=== PATIENT | male | born 1950 | race African-American/Black ===

== ENCOUNTER 2022-03-19 08:51 | Emergency (ER) | payer MEDICARE, MEDICAID ==
[~2022-03-19] VITALS: Ht 180.3 cm; Wt 78.0 kg
[2022-03-19] MEDS ORDERED: ACETAMINOPHEN 325MG TABLET PO STA (09:12)
[2022-03-19 09:38] LABS: CHLORIDE 102 mEq/L (98-107)
[2022-03-19 10:00] LABS: BASOPHILS % 0.2 % (0.0-2.0); EOSINOPHILS % 0.6 % (0.0-5.0); HEMATOCRIT. 42.5 % (42.0-52.0); HEMOGLOBIN. 14.2 g/dL (14.0-18.0); LYMPHOCYTES % 22.5 % (20.0-50.0); MEAN CORPUSCULAR HEMOGLOBIN 31.3 pg (28.0-32.0); MEAN CORPUSCULAR VOLUME 93.6 fL (80.0-94.0); MEAN PLATELET VOLUME 6.2 fl (7.4-10.4); MONOCYTES % 7.5 % (2.0-8.0); NEUTROPHILS % 69.2 % (40.0-76.0); PLATELET 335 x1000/uL (130-400); RED BLOOD CELL COUNT 4.54 mill/uL (4.7-6.1); RED CELL DISTRIBUTION WIDTH 15.1 % (11.6-14.6)
[2022-03-19] MEDS ORDERED: ACETAMINOPHEN 325MG TABLET PO NR (10:41)
[2022-03-19 11:38] LABS: CLARITY URINE TURBID (CLEAR); COLOR URINE YELLOW (YELLOW); KETONES URINE NEGATIVE (NEGATIVE); LEUKOCYTE ESTERASE URINE 3+ (NEGATIVE); NITRITE URINE NEGATIVE (NEGATIVE); OCCULT BLOOD URINE 2+ (NEGATIVE); PH URINE 5.5 (4.5-8.0); PROTEIN URINE 1+ (NEGATIVE); SPECIFIC GRAVITY URINE 1.014 (1.005-1.030)
[2022-03-19] MEDS ORDERED: AMOXICILLIN/POTASSIUM CLAVULANATE 875/125MG TAB PO ONE (11:45)
[2022-03-19] MEDS ORDERED: AZITHROMYCIN 500 MG TABLET PO ONE (11:45)
[2022-03-19] MEDS ORDERED: AZIT500T8 MT (11:46)
[2022-03-19] MEDS ORDERED: AMOX-424 MT (11:46)
[2022-03-19 12:40] VITALS: BP 148/74
== END 2022-03-19 12:41 | disposition home or self-care (01) ==
LOC: ER 08:51
DX: N39.0 Urinary tract infection, site not specified (principal); F14.10 Cocaine abuse, uncomplicated; F12.10 Cannabis abuse, uncomplicated
CPT/HCPCS: 36415; 74176; 80053; 81003; 85025; 99284

== ENCOUNTER 2024-03-30 18:08 | Emergency (ER) | payer MEDICARE, MEDICAID ==
[~2024-03-30] VITALS: Ht 180.3 cm; Wt 71.2 kg
[~2024-03-30 18:08] MED LIST: AMOX-424 MT; AZIT500T8 MT
[2024-03-30 18:19] VITALS: BP 156/93; PULSE 99; RESP 16; TEMP 98.8; O2SAT 98
[2024-03-31] MEDS ORDERED: TOPUD PO (13:19)
== END 2024-03-30 21:29 | disposition left against medical advice (07) ==
LOC: ER 18:08
DX: M25.559 Pain in unspecified hip (principal); Z53.21 Procedure and treatment not carried out due to patient leaving prior to being seen by health care provider
CPT/HCPCS: 99281

== ENCOUNTER 2024-03-31 11:03 | Emergency (ER) | payer MEDICARE, OTHER ==
[~2024-03-31] VITALS: Ht 180.3 cm; Wt 72.0 kg
[2024-03-31 11:27] VITALS: O2SAT 100
[2024-03-31] MEDS: ACETAMINOPHEN 325MG TABLET PO ONE (12:33)
[2024-03-31] MEDS ORDERED: TOPUD PO (13:19)
[2024-03-31 13:30] VITALS: BP 126/84; PULSE 97; RESP 16; TEMP 98.4
== END 2024-03-31 13:32 | disposition home or self-care (01) ==
LOC: ER 11:03
DX: M25.552 Pain in left hip (principal); F14.10 Cocaine abuse, uncomplicated; F12.10 Cannabis abuse, uncomplicated
CPT/HCPCS: 73502; 99283